=== PATIENT | male | born 1990 | race Caucasian/White ===

== ENCOUNTER 2019-01-30 19:12 | Emergency (ER) | payer BC ==
[2019-01-30] MEDS ORDERED: Ketorolac 60 MG/2 ML SDV IM ONE (19:47)
--- NOTE | 2019-01-30 19:50 | EDM.PDOC ---
ED HPI GENERAL MEDICAL PROBLEM - General Chief Complaint: Back Pain or Injury Stated Complaint: LOWER BACK PAIN Time Seen by Provider: 01/30/19 19:45 Source of Information: Reports: Patient History Limitations: Reports: No Limitations - History of Present Illness INITIAL COMMENTS - FREE TEXT/NARRATIVE: HISTORY AND PHYSICAL: History of present illness: Patient is a 28-year-old male who presents to the emergency room with complaints of left mid back pain/flank pain that wraps around to his left mid abdomen. He denies any injury, trauma or falls. Has not participated in any strenuous activity. States the pain started as mild and has gradually gotten worse. Patient denies any fever, chills, headache, change in vision, syncope or near syncope. Denies any chest pain, back pain, shortness of breath or cough. Denies any nausea, vomiting, diarrhea, constipation or dysuria. Has no difficulty starting his stream. Denies any testicular pain, swelling or erythema. Has not noted any blood in urine or stool. Patient has been eating and drinking appropriately. Review of systems: As per history of present illness and below otherwise all systems reviewed and negative. Past medical history: As per history of present illness and as reviewed below otherwise noncontributory. Surgical history: As per history of present illness and as reviewed below otherwise noncontributory. Social history: See social history for further information Family history: As per history of present illness and as reviewed below otherwise noncontributory. Physical exam: General: Well-developed and well-nourished 28-year-old male. Alert and oriented. Nontoxic. I did go acute distress. HEENT: Atraumatic, normocephalic, pupils equal and reactive bilaterally, negative for conjunctival pallor or scleral icterus, mucous membranes moist, trachea midline. No drooling or trismus noted. No meningeal signs. No hot potato voice noted. Lungs: Clear to auscultation, breath sounds equal bilaterally, chest nontender. Heart: S1S2, regular rate and rhythm without overt murmur Abdomen: Soft, nondistended, nontender. Negative for masses or hepatosplenomegaly. Left-sided costovertebral tenderness. Pelvis: Stable nontender. Skin: Intact, warm, dry. No lesions or rashes noted. Extremities: Atraumatic, moves all extremities per self without difficulty or deficits. Neurovascular unremarkable. Neuro: Awake, alert, oriented. Cranial nerves II through XII unremarkable. Cerebellum unremarkable. Motor and sensory unremarkable throughout. Exam nonfocal. Notes: Lab work and CT imaging showed no acute findings. This information was shared with the patient. Supportive care measures were reviewed and discussed. Voices understanding and is agreeable to plan of care. Denies any further questions or concerns at this time. Diagnostics: CBC, CMP, UA, CT abd/pelvis Therapeutics: Toradol IM Impression: Muscular strain, left back Plan: 1. When resting please lay on a flat firm surface. Limit your immobility to prevent muscle stiffness, get up to ambulate/move around/gentle stretching multiple times throughout the day. May alternate heat and ice to the painful areas 2. Tylenol and/or Ibuprofen as needed for back pain. [place] as directed, this medication may cause drowsiness a do not take it will driving her needing to be functioning outside of the house. 3. Please follow-up with your primary care provider as we discussed. Return to the ED as needed and as discussed. Definitive disposition and diagnosis as appropriate pending reevaluation and review of above. Left Middle Back Pain Score (Numeric/FACES): 8 - Related Data Allergies Allergy/AdvReac Type Severity Reaction Status Date / Time No Known Allergies Allergy Verified 01/30/19 19:37 Home Meds: Home Meds . [No Known Home Meds] 01/30/19 [History] Past Medical History - Past Health History Medical/Surgical History: Denies Medical/Surgical History Social & Family History - Family History Family Medical History: Noncontributory - Tobacco Use Smoking Status *Q: Never Smoker - Recreational Drug Use Recreational Drug Use: No ED ROS GENERAL - Review of Systems Review Of Systems: ROS reveals no pertinent complaints other than HPI. ED EXAM, GENERAL - Physical Exam Exam: See Below (See dictation) Course - Vital Signs Last Recorded V/S: Last Vital Signs Temp Pulse 57 L 01/30/19 19:35 Resp 18 01/30/19 19:35 BP 122/72 01/30/19 19:35 Pulse Ox 99 01/30/19 19:35 - Orders/Labs/Meds Orders: Active Orders 24 hr Category Date Time Status COMPREHENSIVE METABOLIC PN,CMP [CHEM] Stat Lab 01/30/19 20:23 Received UA RFX ALISSA AND CULT IF INDIC [URIN] Stat Lab 01/30/19 19:47 Ordered Labs: Laboratory Tests 01/30/19 Range/Units 20:23 WBC 8.48 (4.0-11.0) K/uL RBC 5.69 (4.50-5.90) M/uL Hgb 15.6 (13.0-17.0) g/dL Hct 47.4 (38.0-50.0) % MCV 83.3 (80.0-98.0) fL MCH 27.4 (27.0-32.0) pg MCHC 32.9 (31.0-37.0) g/dL RDW Std Deviation 41.5 (28.0-62.0) fl RDW Coeff of Jason 14 (11.0-15.0) % Plt Count 231 (150-400) K/uL MPV 10.80 (7.40-12.00) fL Neut % (Auto) 38.3 L (48.0-80.0) % Lymph % (Auto) 50.1 H (16.0-40.0) % [place] % (Auto) 10.1 (0.0-15.0) % Eos % (Auto) 1.1 (0.0-7.0) % Baso % (Auto) 0.4 (0.0-1.5) % Neut # (Auto) 3.3 (1.4-5.7) K/uL Lymph # (Auto) 4.3 H (0.6-2.4) K/uL [place] # (Auto) 0.9 H (0.0-0.8) K/uL Eos # (Auto) 0.1 (0.0-0.7) K/uL Baso # (Auto) 0.0 (0.0-0.1) K/uL Nucleated RBC % 0.0 /100WBC Nucleated RBCs # 0 K/uL Meds: Medications Discontinued Medications Generic Name Dose Route Start Last Admin Trade Name Freq PRN Reason Stop Dose Admin Ketorolac Tromethamine 60 mg 01/30/19 19:47 01/30/19 20:34 Toradol IM 01/30/19 19:48 60 mg ONETIME ONE Administration Departure - Departure Time of Disposition: 20:45 Disposition: Home, Self-Care 01 Clinical Impression: Muscle strain of left upper back Qualifiers: Encounter type: initial encounter Qualified Code(s): S29.012A - Strain of muscle and tendon of back wall of thorax, initial encounter - Discharge Information Instructions: Muscle Strain, [id number] Referrals: PCP,None [Primary Care Provider] - Forms: ED Department Discharge Additional Instructions: The following information is given to patients seen in the emergency department who are being discharged to home. This information is to outline your options for follow-up care. We provide all patients seen in our emergency department with a follow-up referral. The need for follow-up, as well as the timing and circumstances, are variable depending upon the specifics of your emergency department visit. If you don't have a primary care physician on staff, we will provide you with a referral. We always advise you to contact your personal physician following an emergency department visit to inform them of the circumstance of the visit and for follow-up with them and/or the need for any referrals to a consulting specialist. The emergency department will also refer you to a specialist when appropriate. This referral assures that you have the opportunity for follow-up care with a specialist. All of these measure are taken in an effort to provide you with optimal care, which includes your follow-up. Under all circumstances we always encourage you to contact your private physician who remains a resource for coordinating your care. When calling for follow-up care, please make the office aware that this follow-up is from your recent emergency room visit. If for any reason you are refused follow-up, please contact the [facility] Emergency Department at and asked to speak to the emergency department charge nurse. [facility] [address] [place] [address] [id number] [address] [address] 1. When resting please lay on a flat firm surface. Limit your immobility to prevent muscle stiffness, get up to ambulate/move around/gentle stretching multiple times throughout the day. May alternate heat and ice to the painful areas 2. Tylenol and/or Ibuprofen as needed for back pain. [place] as directed, this medication may cause drowsiness a do not take it will driving her needing to be functioning outside of the house. 3. Please follow-up with your primary care provider as we discussed. Return to the ED as needed and as discussed. - My Orders Last 24 Hours: My Active Orders 01/30/19 19:47 UA RFX ALISSA AND CULT IF INDIC [URIN] Stat 01/30/19 20:23 COMPREHENSIVE METABOLIC PN,CMP [CHEM] Stat - Assessment/Plan Last 24 Hours: My Active Orders 01/30/19 19:47 UA RFX ALISSA AND CULT IF INDIC [URIN] Stat 01/30/19 20:23 COMPREHENSIVE METABOLIC PN,CMP [CHEM] Stat
--- NOTE | 2019-01-30 20:35 | CT ---
TECHNIQUE: Noncontrast CT abdomen and pelvis, renal stone protocol. INDICATION: Left flank pain for 6 knees. FINDINGS: No urolithiasis or hydronephrosis. Kidneys have a normal unenhanced appearance. The liver, spleen, pancreas, adrenal glands are normal. The bowel is unremarkable. The cecum crosses the midline appendix is located in the mid abdomen on image 84 series 201. It appears normal. There is a blind-ending loop of bowel arising from the ileum in the right lower quadrant on images 112-106 compatible with a Meckel`s diverticulum. No adenopathy, free air, or free fluid. IMPRESSION: 1. No nephrolithiasis. No acute findings. 2. Meckel`s diverticulum in the ileum. 3. Otherwise normal abdomen pelvis CT. Dictated by Gba Interiano MD @ 01/30/2019 8:34:21 PM Please note that all CT scans at this facility use dose modulation, iterative reconstruction, and/or weight-based dosing when appropriate to reduce radiation dose to as low as reasonably achievable. Dictated by: Gab Interiano MD @ 01/30/2019 20:34:25 (Electronically Signed)
[2019-01-30 20:54] LABS: CHLORIDE,CL 107 mmol/L (98-107); SODIUM,NA 144 mmol/L (136-148)
== END 2019-01-30 21:10 | disposition home or self-care (01) ==
LOC: MW.ED 19:12
DX: S29.012A Strain of muscle and tendon of back wall of thorax, initial encounter (principal); X58.XXXA Exposure to other specified factors, initial encounter
CPT/HCPCS: 36415; 74176; 80053; 81003; 85025; 96372; 99284; J1885